=== PATIENT | male | born 1980 | race American Indian/Alaskan Native ===

== ENCOUNTER 2016-09-03 07:47 | Emergency (ER) | payer OTHER ==
[2016-09-03] MEDS ORDERED: MOTRIN PO ONE (11:53)
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
[2016-09-03 13:03] VITALS: BP 128/82
== END 2016-09-03 13:04 | disposition home or self-care (01) ==
LOC: ED 07:47
DX: T54.2X1A Toxic effect of corrosive acids and acid-like substances, accidental (unintentional), initial encounter (principal); T23.531A Corrosion of first degree of multiple right fingers (nail), not including thumb, initial encounter; T32.0 Corrosions involving less than 10% of body surface; Y93.89 Activity, other specified; Y92.89 Other specified places as the place of occurrence of the external cause; Y99.8 Other external cause status
CPT/HCPCS: 99282